=== PATIENT | female | born 1965 | race Caucasian/White ===

== ENCOUNTER 2022-02-08 12:35 | Emergency (ER) | payer SELFPAY ==
[~2022-02-08] VITALS: Ht 167.6 cm; Wt 46.3 kg
[2022-02-08 12:51] VITALS: BP 132/71
--- NOTE | 2022-02-08 13:15 | NUR ---
56/F PRESENTS TO ED WITH C/O BUG BITE TO RIGHT BUTTOCKS X3 DAYS, DENIES FEVERS, CHILLS, STATES WHITE DISCHARGE FROM AREA. PATIENT DENIES TAKING MEDS FOR PAIN.
[2022-02-08] MEDS ORDERED: CEPH-588 PO (13:48)
[2022-02-08] MEDS ORDERED: IBUP-1842 PO (13:48)
[2022-02-08] MEDS ORDERED: SULF-59 PO (13:48)
[2022-02-08 14:14] VITALS: BP 132/71
--- NOTE | 2022-02-08 14:15 | NUR ---
Patient discharged with v/s stable. Written and verbal after care instructions ABOUT CELLULITIS given and explained. Patient alert, oriented and verbalized understanding of instructions. Ambulatory with steady gait. All questions addressed prior to discharge. ID band removed. Patient advised to follow up with PMD. Rx of KEFLEX, MOTRIN AND BACTRIM given. Patient educated on indication of medication including possible reaction and side effects. Opportunity to ask questions provided and answered.
== END 2022-02-08 14:15 | disposition home or self-care (01) ==
LOC: MED 12:35
DX: L03.317 Cellulitis of buttock (principal); Z79.899 Other long term (current) drug therapy
CPT/HCPCS: 99283

== ENCOUNTER 2023-05-16 02:16 | Emergency (ER) | payer SELFPAY ==
[~2023-05-16] VITALS: Ht 162.6 cm; Wt 51.3 kg
[~2023-05-16 02:16] MED LIST: CEPH-588 PO; IBUP-1842 PO; SULF-59 PO
[2023-05-16 02:34] VITALS: BP 163/88; PULSE 73; RESP 18; TEMP 98.8; O2SAT 100
[2023-05-16] MEDS ORDERED: FLUORESCEIN OPTH STRIP 1 MG OP ONE (02:45)
[2023-05-16] MEDS ORDERED: KETOROLAC 30 MG/ML VIAL IM ONE (02:45)
[2023-05-16] MEDS ORDERED: HYDROcodone/APAP 5/325 MG 1 TAB TAB PO ONE (02:50)
[2023-05-16] MEDS ORDERED: ACET-8905 PO (03:59)
[2023-05-16] MEDS ORDERED: TOBR5DRO10 RIGHT EYE (03:59)
[2023-05-16] MEDS ORDERED: CETI10SG1 PO (03:59)
[2023-05-16] MEDS ORDERED: AMOX500C25 PO (03:59)
[2023-05-16 04:04] VITALS: BP 163/88; PULSE 73; RESP 18; TEMP 98.8; O2SAT 100
== END 2023-05-16 04:04 | disposition home or self-care (01) ==
LOC: MED 02:16
DX: H10.12 Acute atopic conjunctivitis, left eye (principal); R51.9 Headache, unspecified; K08.89 Other specified disorders of teeth and supporting structures; Z79.899 Other long term (current) drug therapy
CPT/HCPCS: 99283; J1885